=== PATIENT | male | born 1960 | race African-American/Black ===

== ENCOUNTER 2017-04-13 22:16 | Emergency (ER) | payer SELFPAY ==
[2017-04-13] MEDS ORDERED: Sodium Chloride 0.9% 1,000 ML PRIMARY IV ONE (23:09)
[2017-04-13] MEDS ORDERED: NORMAL SALINE 10 ML SYRINGE FLUSH IVP PRN (23:09)
[2017-04-13 23:19] LABS: BASOPHILS # (AUTO) 0.03 10*3/UL; BASOPHILS % (AUTO) 0.3 % (0-1); EOSINOPHILS # (AUTO) 0.18 10*3/UL; EOSINOPHILS % (AUTO) 1.6 % (0-8); HEMATOCRIT 41.9 % (42.0-52.0); HEMOGLOBIN 13.8 g/dL (14.0-18.0); LYMPHOCYTES # (AUTO) 5.05 10*3/uL; MEAN CORPUSCULAR HEMOGLOBIN 28.5 PG (27-31); MEAN CORPUSCULAR HGB CONC 32.9 g/dL (33-37); MEAN CORPUSCULAR VOLUME 86.4 FL (80-90); MONOCYTES # (AUTO) 0.86 10*3/UL (0.3-0.8); MONOCYTES % (AUTO) 7.4 % (5-15); NEUTROPHILS # (AUTO) 5.44 10*3/UL; NEUTROPHILS % (AUTO) 46.8 % (50-80); RED BLOOD COUNT 4.85 10^6/uL (4.70-6.10)
[2017-04-13 23:21] VITALS: RESP 20
[2017-04-13 23:25] LABS: BLOOD UREA NITROGEN 24 mg/dL (7-22); BUN/CREATININE RATIO 21.81 (6-20); CALCIUM 9.4 mg/dL (8.7-10.7); EST GLOMERULAR FILTRATION > 60 (>60 ml/min/1.73m(2)); SERUM ALBUMIN 4.4 g/dL (3.5-4.8)
[2017-04-13 23:32] LABS: PLATELET MORPHOLOGY COMMENT NORMAL MORPHOLOGY (NORM); RBC MORPHOLOGY COMMENT NORMAL MORPHOLOGY (NORM); WBC MORPHOLOGY COMMENT NORMAL MORPHOLOGY (NORM)
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
[2017-04-14] MEDS ORDERED: HYDROcodone-APAP 10 MG-325 MG TABLET PO SCH (02:45)
--- NOTE | 2017-04-14 02:54 | DI ---
CLINICAL HISTORY: Right foot injury. PREVIOUS EXAM: None available. FINDINGS/TECHNIQUE: 3 views of the right foot are obtained, and demonstrate postsurgical changes cons istent with screw and plate fixation of the right fibula. There is a small right ankle joint effusion. There are degenerative changes involving the tibiotalar joint. Advanced degenerative changes of the right first metatarsophalangeal joint are also noted. No acute f ractures are identified. IMPRESSION: 1. Degenerative changes and postsurgical changes as above without acute bony injury.
--- NOTE | 2017-04-14 02:56 | DI ---
CLINICAL HISTORY: Left foot lacerations and abrasions. PREVIOUS EXAM: None available. FINDINGS/TECHNIQUE: 3 views of the left foot are obtained, and demonstrate a hallux valgus deformity with degenerative changes of the left first metatarsophalangeal joint. There is diffuse osteopenia. S urrounding soft tissues are unremarkable. IMPRESSION: 1. Left hallux is deformity with degenerative changes of first metatarsophalangeal joint. 2. No acute fracture.
[2017-04-14 04:32] VITALS: TEMP 98
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
--- NOTE | 2017-04-14 08:25 | EKG ---
[address] [address] Measurements Intervals [place] Rate: 65 P: 72 AK: 165 QRS: 63 QRSD: 94 T: 52 QT: 398 QTc: 410 Interpretive Statements SINUS RHYTHM NONSPECIFIC ST ELEVATION [0.05+ mV ST ELEVATION] No previous ECG available for comparison Electronically Signed On 04-14-17 10:11:41 MDT by Ned Goldsmith MD [email or web address]
== END 2017-04-14 03:10 | disposition home or self-care (01) ==
LOC: ER 22:16
DX: S22.011A Stable burst fracture of first thoracic vertebra, initial encounter for closed fracture (principal); R51 Headache; S80.212A Abrasion, left knee, initial encounter; S80.211A Abrasion, right knee, initial encounter; S60.512A Abrasion of left hand, initial encounter; S60.511A Abrasion of right hand, initial encounter; S90.812A Abrasion, left foot, initial encounter; S90.811A Abrasion, right foot, initial encounter; S00.01XA Abrasion of scalp, initial encounter; S20.212A Contusion of left front wall of thorax, initial encounter; S20.211A Contusion of right front wall of thorax, initial encounter; V40.6XXA Car passenger injured in collision with pedestrian or animal in traffic accident, initial encounter
CPT/HCPCS: 70450; 71010; 71260; 72125; 73562; 73630; 80053; 84484; 85025; 93005; 93010; 99284